=== PATIENT | female | born 1970 | race Caucasian/White ===

== ENCOUNTER 2016-08-09 09:39 | Day surgery (SDC) | payer OTHER ==
[~2016-08-09] VITALS: Ht 152.4 cm; Wt 58.1 kg
[~2016-08-09 09:39] MED LIST: ASPIR-LOW81 MG PO; BACLOFEN10 MG PO; BENADRYL25 MG PO; CIPRO500 MG PO; CYMBALTA30 MG PO; DAILY VALUE1 EACH PO; FLEXERIL10 MG PO; INDOCIN25 MG PO; LIPITOR80 MG PO; LORAZEPAM0.5 MG PO; LORTAB 5-325 M1 EACH PO; MULTIPLE VITAM1 EAC1 PO; NITROSTAT0.4 MG SL; PEPCID20 MG PO; PERCOCET 5/31 TABLET PO; PREDNISONE10 M1 PO; PREDNISONE10 MG PO; PROZAC20 MG PO; RELPAX40 MG PO; TOPAMAX100 MG PO; TOPAMAX200 MG PO; TOPIRAMATE100 MG PO; TROKENDI XR200 MG PO; VITAMIN E200 UNI2 PO; VITAMIN E400 UNIT PO
[2016-08-09 10:34] VITALS: BP 114/68
[2016-08-09 13:52] VITALS: BP 102/65
[2016-08-09 14:29] VITALS: BP 102/72
== END 2016-08-09 14:30 | disposition home or self-care (01) ==
LOC: SDC 09:39
DX: N92.0 Excessive and frequent menstruation with regular cycle (principal); N94.6 Dysmenorrhea, unspecified; N94.10 Unspecified dyspareunia; N85.4 Malposition of uterus; D25.9 Leiomyoma of uterus, unspecified; J30.9 Allergic rhinitis, unspecified; E66.3 Overweight; F30.9 Manic episode, unspecified; Z82.49 Family history of ischemic heart disease and other diseases of the circulatory system; Z83.3 Family history of diabetes mellitus; Z82.3 Family history of stroke; Z88.8 Allergy status to other drugs, medicaments and biological substances
CPT/HCPCS: 84702; 88305; J1100; J1885; J2175; J2405; J2710; J3010

== ENCOUNTER 2016-09-10 09:23 | Inpatient (IN) | payer OTHER ==
[~2016-09-10] VITALS: Ht 152.4 cm; Wt 60.0 kg
[~2016-09-10 09:23] MED LIST changes: +ZYRTEC10 M3 PO
[2016-09-10 09:47] VITALS: BP 113/73
[2016-09-10 16:24] LABS: HEMATOCRIT 38.5 % (36.0-46.0); MCV 98.5 FL (83-99)
[2016-09-10 18:30] LABS: ANION GAP 10 MEQ/L (2-14); CHLORIDE 108 MEQ/L (99-109); POTASSIUM 3.7 MEQ/L (3.7-5.4); SAMPLE HEMOLYSIS CHECK 0; SAMPLE ICTERIC CHECK 0; SAMPLE LIPEMIA CHECK 0; SODIUM 138 MEQ/L (136-147)
[2016-09-10 18:36] LABS: GFR ESTIMATE (CALCULATED) > 59 mL/min/; GLUCOSE 144 mg/dL (70-99); UREA NITROGEN (BUN) 14 mg/dL (9-23)
[2016-09-10 18:39] LABS: TROP-I INTERPRETATION NEGATIVE; TROPONIN-I < 0.01 ng/mL (0.0-0.30)
[2016-09-10 19:50] VITALS: BP 116/73
[2016-09-11 00:47] VITALS: BP 111/66
[2016-09-11 06:25] LABS: HEMATOCRIT 36.6 % (36.0-46.0); MCH 31.5 PG (29.0-34.0); MCV 98.4 FL (83-99); MEAN PLAT.VOLUME 9.5 uM^3 (9.5-12.4); PLATELET COUNT 206 K/uL (156-360); RBC DIS.WIDTH-CV 12.1 % (11.8-14.6); RBC DIS.WIDTH-SD 44.6 % (39-53); RED BLOOD COUNT 3.72 M/uL (3.80-5.20)
[2016-09-11 06:50] LABS: ANION GAP 6 MEQ/L (2-14); CHLORIDE 110 MEQ/L (99-109); GFR ESTIMATE (CALCULATED) > 59 mL/min/; SAMPLE HEMOLYSIS CHECK 0; SAMPLE ICTERIC CHECK 0; SAMPLE LIPEMIA CHECK 0; SODIUM 139 MEQ/L (136-147); UREA NITROGEN (BUN) 13 mg/dL (9-23)
[2016-09-11 06:51] LABS: GLUCOSE 105 mg/dL (70-99)
[2016-09-11 07:10] LABS: WHITE BLOOD COUNT 10.1 K/uL (4.1-10.2)
[2016-09-11 07:27] LABS: EOSINOPHIL (%) 0 % (0-5); IMMATURE GRANULOCYTE (%) 0.3 % (0.0-0.7); INSTRUMENT ABS NEUTROPHIL CT 7.7 K/uL; MONOCYTE (%) 3.9 % (3-12); MONOCYTE COUNT 0.4 K/uL (0-0.8); NEUTROPHIL (%) 75.5 % (45-76); NEUTROPHIL COUNT 7.7 K/uL (1.8-6.4)
[2016-09-11 08:08] VITALS: BP 117/65
[2016-09-11 12:42] VITALS: BP 102/59
[2016-09-11 16:26] VITALS: BP 103/64
[2016-09-11 17:05] LABS: INFLUENZA A VIRAL ANTIGEN NEGATIVE; INFLUENZA B VIRAL ANTIGEN NEGATIVE
[2016-09-11 19:40] VITALS: BP 100/55
[2016-09-11 23:23] VITALS: BP 104/57
[2016-09-12 03:55] VITALS: BP 119/67
[2016-09-12 06:35] LABS: HEMATOCRIT 31.5 % (36.0-46.0); MCH 32.3 PG (29.0-34.0); MCV 97.8 FL (83-99); MEAN PLAT.VOLUME 9.2 uM^3 (9.5-12.4); PLATELET COUNT 153 K/uL (156-360); RBC DIS.WIDTH-CV 12.2 % (11.8-14.6); RBC DIS.WIDTH-SD 44.6 % (39-53); RED BLOOD COUNT 3.22 M/uL (3.80-5.20); WHITE BLOOD COUNT 9.6 K/uL (4.1-10.2)
[2016-09-12 06:57] LABS: ALKALINE PHOSPHATASE 68 IU/L (3-129); ANION GAP 8 MEQ/L (2-14); CHLORIDE 112 MEQ/L (99-109); GFR ESTIMATE (CALCULATED) > 59 mL/min/; GLUCOSE 100 mg/dL (70-99); POTASSIUM 3.9 MEQ/L (3.7-5.4); SAMPLE HEMOLYSIS CHECK 0; SAMPLE ICTERIC CHECK 0; SAMPLE LIPEMIA CHECK 0; SODIUM 140 MEQ/L (136-147); UREA NITROGEN (BUN) 9 mg/dL (9-23)
[2016-09-12 07:01] VITALS: BP 103/64
[2016-09-12 07:07] LABS: TOTAL BILIRUBIN 0.4 MG/DL (0.0-1.0)
[2016-09-12 07:40] LABS: INTERNAL CONTROL VALID? YES
[2016-09-12 07:57] LABS: EOSINOPHIL (%) 0.6 % (0-5); EOSINOPHIL COUNT 0.1 K/uL (0-0.3); HEMATOLOGY COMMENT 1 SMEAR COMPATIBLE; IMMATURE GRANULOCYTE (%) 0.6 % (0.0-0.7); IMMATURE GRANULOCYTE COUNT 0.1 K/uL; INSTRUMENT ABS NEUTROPHIL CT 7.8 K/uL; LYMPHOCYTE COUNT 1.2 K/uL (1.0-2.8); MONOCYTE (%) 4.4 % (3-12); MONOCYTE COUNT 0.4 K/uL (0-0.8); NEUTROPHIL (%) 81.2 % (45-76); NEUTROPHIL COUNT 7.8 K/uL (1.8-6.4)
[2016-09-12 11:21] VITALS: BP 109/70
[2016-09-12 11:36] LABS: HEMATOCRIT 33.4 % (36.0-46.0); MEAN PLAT.VOLUME 9.2 uM^3 (9.5-12.4); PLATELET COUNT 152 K/uL (156-360); RBC DIS.WIDTH-CV 12.2 % (11.8-14.6); RBC DIS.WIDTH-SD 44.7 % (39-53); RED BLOOD COUNT 3.34 M/uL (3.80-5.20); WHITE BLOOD COUNT 8.7 K/uL (4.1-10.2)
[2016-09-12 15:32] VITALS: BP 90/52
[2016-09-12 21:20] VITALS: BP 113/63
[2016-09-13 04:47] VITALS: BP 105/67
[2016-09-13 06:58] VITALS: BP 97/55
[2016-09-13] MEDS ORDERED: LEVOFLOXACIN750 MG PO (09:10)
[2016-09-13] MEDS ORDERED: ACIDOPHILUS LA1 EACH PO (09:11)
[2016-09-13] MEDS ORDERED: REGLAN10 MG PO (09:12)
== END 2016-09-13 10:05 | disposition home or self-care (01) | DRG 742 ==
LOC: SDC 09:23 → 2SOUTH 13:50 → EDSTATUS 15:32 → SDC 15:33 → 2SOUTH 17:13 → 4EAST 17:13 → 2SOUTH 18:00 → 4EAST 19:07
PROVIDERS: Anesthesiology; Internal Medicine Pulmonary Disease; Obstetrics & Gynecology; Obstetrics & Gynecology Gynecology
DX: D25.9 Leiomyoma of uterus, unspecified (principal); J81.0 Acute pulmonary edema; N92.0 Excessive and frequent menstruation with regular cycle; N94.10 Unspecified dyspareunia; N94.6 Dysmenorrhea, unspecified; R09.02 Hypoxemia; F31.9 Bipolar disorder, unspecified; I74.9 Embolism and thrombosis of unspecified artery
CPT/HCPCS: 71010; 71020; 71275; 80048; 80053; 84145 90; 84484; 85014; 85018; 85025; 85027; 85379; 87086; 87449; 87502; 88307; 93005; 93306; 93970; 94640; J0131; J0690; J1100; J1170; J1644; J1885; J1940; J2250; J2270; J2405; J2710; J2765; J3010; J7120

== ENCOUNTER 2017-07-25 20:10 | Emergency (ER) | payer OTHER ==
[~2017-07-25] VITALS: Ht 152.4 cm; Wt 55.2 kg
[~2017-07-25 20:10] MED LIST changes: +ACIDOPHILUS LA1 EACH PO; +LEVOFLOXACIN750 MG PO; +REGLAN10 MG PO
[2017-07-25 20:35] LABS: HEMATOCRIT 39.1 % (36.0-46.0); MCH 33.5 PG (29.0-34.0); MCHC 33.2 G/DL (30.0-36.0); MCV 100.8 FL (83-99); PLATELET COUNT 157 K/uL (156-360); RBC DIS.WIDTH-CV 13.2 % (11.8-14.6); RBC DIS.WIDTH-SD 49.1 % (39-53); RED BLOOD COUNT 3.88 M/uL (3.80-5.20); WHITE BLOOD COUNT 3.6 K/uL (4.1-10.2)
[2017-07-25 20:44] LABS: CHLORIDE 114 mEq/L (99-109); POTASSIUM 3.9 mEq/L (3.7-5.4); SODIUM 141 mEq/L (136-147)
[2017-07-25 20:46] LABS: GLUCOSE 95 mg/dL (70-99)
[2017-07-25 20:49] LABS: CREATININE 0.8 mg/dL (0.6-1.3); GFR ESTIMATE (CALCULATED) > 59 mL/min/
[2017-07-25 20:50] LABS: UREA NITROGEN (BUN) 11 mg/dL (9-23)
[2017-07-25 20:56] LABS: TROP-I INTERPRETATION NEGATIVE; TROPONIN-I < 0.01 ng/mL (0.0-0.30)
[2017-07-25 22:59] LABS: APPEARANCE SL.HAZY ((CLEAR)); BILIRUBIN NEGATIVE; BLOOD NEGATIVE; COLOR STRAW ((YELLOW)); GLUCOSE (STRIP) NEGATIVE; KETONES NEGATIVE; LEUKOCYTES NEGATIVE; NITRITE NEGATIVE; PROTEIN (STRIP) NEGATIVE; SPECIFIC GRAVITY 1.009 (1.000-1.030); UROBILINOGEN 0.2 MG/DL (0.2-1.0)
[2017-07-25 23:02] LABS: BACTERIA 3+ /HPF; EPITHELIAL CELLS 1+ /HPF; MUCUS TRACE /LPF; RED BLOOD CELLS 0-5 /HPF (0-5); WHITE BLOOD CELLS 0-5 /HPF (0-5)
[2017-07-25 23:12] LABS: AMPHETAMINE NEGATIVE (500 ng/mL); BARBITURATES NEGATIVE (200 ng/mL); BENZODIAZEPINES NEGATIVE (150 ng/mL); COCAINE NEGATIVE (150 ng/mL); METHADONE NEGATIVE (200 ng/mL); METHAMPHETAMINE NEGATIVE (500 ng/mL); OPIATES (MORPHINE) NEGATIVE (100 ng/mL); OXYCODONE NEGATIVE (100 ng/mL); PHENCYCLIDINE NEGATIVE (25 ng/mL); THC CANNABINOIDS NEGATIVE (50 ng/mL); TRICYCLIC ANTIDEPRESSANTS NEGATIVE (300 ng/mL)
[2017-07-25 23:13] LABS: BUPRENORPHINE NEGATIVE (10 ng/mL); PROPOXYPHENE NEGATIVE (300 ng/mL)
[2017-07-25 23:50] LABS: TROP-I INTERPRETATION NEGATIVE; TROPONIN-I < 0.01 ng/mL (0.0-0.30)
[2017-07-26] MEDS ORDERED: PREDNISONE20 MG PO (00:36)
[2017-07-26] MEDS ORDERED: KEFLEX500 MG PO (00:36)
[2017-07-26] MEDS ORDERED: INDOCIN25 MG PO (00:36)
[2017-07-26] MEDS ORDERED: VENTOLIN HFA18 GM IH (00:36)
[2017-07-26 00:54] VITALS: BP 111/74
== END 2017-07-26 00:55 | disposition home or self-care (01) ==
LOC: EME 20:10
PROVIDERS: Physician Assistant
DX: J20.8 Acute bronchitis due to other specified organisms (principal); S29.011A Strain of muscle and tendon of front wall of thorax, initial encounter; N39.0 Urinary tract infection, site not specified; I49.8 Other specified cardiac arrhythmias; R68.83 Chills (without fever); R07.89 Other chest pain; T40.2X5A Adverse effect of other opioids, initial encounter; Z82.49 Family history of ischemic heart disease and other diseases of the circulatory system; G43.909 Migraine, unspecified, not intractable, without status migrainosus; F31.9 Bipolar disorder, unspecified
CPT/HCPCS: 70450; 71046; 80048; 81003; 84484; 85027; 87086; 93005; 94640; 99281; 99285; J7030; J7512

== ENCOUNTER → 2017-09-08 | Outpatient (CLI) | payer OTHER ==
[~2017-09-08] VITALS: Ht 153.7 cm; Wt 53.1 kg
[~2017-09-08] MED LIST changes: +ALLEGRA ALLERG180 MG PO; +KEFLEX500 MG PO; +PREDNISONE20 MG PO; +VENTOLIN HFA18 GM IH
== END | disposition home or self-care (01) ==
LOC: AMB 09:41
PROC: 0DJD8ZZ Inspection of Lower Intestinal Tract, Via Natural or Artificial Opening Endoscopic (ICD-10-PCS; principal; 2017-09-08)
DX: K59.00 Constipation, unspecified (principal); K59.8 Other specified functional intestinal disorders; K64.8 Other hemorrhoids; E66.3 Overweight; Z85.820 Personal history of malignant melanoma of skin; Z82.49 Family history of ischemic heart disease and other diseases of the circulatory system; Z83.3 Family history of diabetes mellitus; Z88.8 Allergy status to other drugs, medicaments and biological substances